=== PATIENT | female | born 1935 | race Caucasian/White ===

== ENCOUNTER 2016-07-13 15:18 | Inpatient (IN) | payer MEDICARE, OTHER ==
[~2016-07-13] VITALS: Ht 160 cm; Wt 45.1 kg
[~2016-07-13 15:18] MED LIST: ASPI-621 PO; ATOR40TA78 PO; LISI-167 PO
[2016-07-13 16:06] LABS: HEMOGLOBIN 11.3 g/dL (11.7-16.4)
[2016-07-13 16:18] LABS: ASPARTATE AMINO TRANSFERASE 14 U/L (15-37); BLOOD UREA NITROGEN 38 mg/dL (7-18)
[2016-07-13] MEDS ORDERED: TEMA15CA PO (16:53)
[2016-07-13] MEDS ORDERED: LORA-446 PO (16:53)
[2016-07-13] MEDS ORDERED: CETI-237 PO (16:53)
[2016-07-13] MEDS ORDERED: CEFTRIAXONE PMX 1GM/50ML 50 ML ONE (19:30)
[2016-07-13] MEDS ORDERED: CEFTRIAXONE PMX 1GM/50ML 50 ML IV ONE (19:30)
[2016-07-13] MEDS ORDERED: TRAZODONE 50MG TABLET PO PRN (21:00)
[2016-07-13] MEDS ORDERED: ONDANSETRON ODT 4 MG PO PRN (21:00)
[2016-07-13] MEDS ORDERED: POLYETHYLENE GLYCOL 17 GM PACKET PO PRN (21:00)
[2016-07-13] MEDS ORDERED: DOCUSATE 100 MG CAPSULE PO PRN (21:00)
[2016-07-13] MEDS ORDERED: MORPHINE SULFATE 4 MG/ML, 1ML IVPush PRN (21:00)
[2016-07-13] MEDS ORDERED: BISACODYL 10 MG SUPP PR PRN (21:00)
[2016-07-13 21:16] VITALS: BP 188/72
[2016-07-13] MEDS: SODIUM CHLORIDE 0.9% 1,000 ML IV SCH (21:53)
[2016-07-13] MEDS: ATORVASTATIN 40 MG TABLET PO SCH (21:54)
[2016-07-13] MEDS: HEPARIN 5,000 UNITS/ML, 1ML SQ SCH (21:54)
[2016-07-13] MEDS: NICOTINE 7 MG/24 HR PATCH.TD24 TD SCH (21:55)
[2016-07-13] MEDS: CEFTRIAXONE PMX 2GM/50ML 50 ML IV SCH (21:55)
[2016-07-13] MEDS: ACETAMINOPHEN 325 MG TABLET PO PRN (22:04)
[2016-07-13 22:38] VITALS: BP 164/64
[2016-07-14] VITALS (8 sets, daily range): BP systolic 155–221; BP diastolic 62–78
[2016-07-14 05:22] LABS: HEMOGLOBIN 9.8 g/dL (11.7-16.4)
[2016-07-14 05:29] LABS: BLOOD UREA NITROGEN 31 mg/dL (7-18)
[2016-07-14] MEDS: ASPIRIN 81 MG TABLET EC PO SCH (05:38)
[2016-07-14] MEDS: HEPARIN 5,000 UNITS/ML, 1ML SQ SCH ×3 (05:38→21:11)
[2016-07-14 05:41] LABS: ASPARTATE AMINO TRANSFERASE 12 U/L (15-37)
[2016-07-14] MEDS: SODIUM CHLORIDE 0.9% 1,000 ML IV SCH ×2 (08:34→14:43)
[2016-07-14] MEDS ORDERED: LISINOPRIL 10 MG TABLET PO SCH (09:00)
[2016-07-14] MEDS: LABETALOL 5MG/ML, 20ML IV PRN ×2 (14:47→19:54)
[2016-07-14] MEDS ORDERED: HYDROcodone/APAP 5/325 TABLET PO PRN (16:00)
[2016-07-14] MEDS: CEFTRIAXONE PMX 2GM/50ML 50 ML IV SCH (21:11)
[2016-07-14] MEDS: NICOTINE 7 MG/24 HR PATCH.TD24 TD SCH (21:11)
[2016-07-14] MEDS: ACETAMINOPHEN 325 MG TABLET PO PRN (21:12)
[2016-07-14] MEDS: ATORVASTATIN 40 MG TABLET PO SCH (21:12)
[2016-07-14] MEDS: hydrALAzine 20 MG/ML, 1ML IV PRN (23:20)
[2016-07-15] VITALS (8 sets, daily range): BP systolic 136–200; BP diastolic 54–74
[2016-07-15] MEDS: HEPARIN 5,000 UNITS/ML, 1ML SQ SCH ×3 (05:15→22:23)
[2016-07-15] MEDS: ASPIRIN 81 MG TABLET EC PO SCH (05:15)
[2016-07-15 05:46] LABS: HEMOGLOBIN 9.7 g/dL (11.7-16.4)
[2016-07-15 05:52] LABS: ASPARTATE AMINO TRANSFERASE 15 U/L (15-37); BLOOD UREA NITROGEN 17 mg/dL (7-18)
[2016-07-15] MEDS: LISINOPRIL 20 MG TABLET PO SCH ×2 (09:04→22:23)
[2016-07-15] MEDS: ACETAMINOPHEN 325 MG TABLET PO PRN ×2 (09:07→17:49)
[2016-07-15] MEDS: hydrALAzine 20 MG/ML, 1ML IV PRN (15:58)
[2016-07-15] MEDS: CEFTRIAXONE PMX 2GM/50ML 50 ML IV SCH (22:23)
[2016-07-15] MEDS: ATORVASTATIN 40 MG TABLET PO SCH (22:23)
[2016-07-15] MEDS: NICOTINE 7 MG/24 HR PATCH.TD24 TD SCH (22:24)
[2016-07-15] MEDS: TRAZODONE 50MG TABLET PO PRN (22:25)
[2016-07-16] MEDS: hydrALAzine 20 MG/ML, 1ML IV PRN (00:09)
[2016-07-16 01:23] VITALS: BP 104/53
[2016-07-16] MEDS: HEPARIN 5,000 UNITS/ML, 1ML SQ SCH ×2 (05:21→12:55)
[2016-07-16] MEDS: ASPIRIN 81 MG TABLET EC PO SCH (05:21)
[2016-07-16 06:55] VITALS: BP 135/73
[2016-07-16] MEDS: NICOTINE 7 MG/24 HR PATCH.TD24 TD SCH ×2 (09:00→20:37)
[2016-07-16] MEDS: LISINOPRIL 20 MG TABLET PO SCH ×2 (09:22→20:38)
[2016-07-16] MEDS: ACETAMINOPHEN 325 MG TABLET PO PRN (09:22)
[2016-07-16] MEDS ORDERED: DILTIAZEM 5 MG/ML, 5ML IVPush PRN (13:00)
[2016-07-16 13:55] VITALS: BP 174/84
[2016-07-16 20:00] VITALS: BP 197/53
[2016-07-16] MEDS: ATORVASTATIN 40 MG TABLET PO SCH (20:37)
[2016-07-16] MEDS: TRAZODONE 50MG TABLET PO PRN (20:37)
[2016-07-16] MEDS: LABETALOL 5MG/ML, 20ML IV PRN (20:38)
[2016-07-16] MEDS: CEFTRIAXONE PMX 2GM/50ML 50 ML IV SCH (20:38)
[2016-07-16] MEDS: APIXABAN 2.5 MG TABLET PO SCH (21:00)
[2016-07-16 21:45] VITALS: BP 115/57
[2016-07-17 01:17] VITALS: BP 175/69
[2016-07-17] MEDS: ASPIRIN 81 MG TABLET EC PO SCH (05:21)
[2016-07-17 07:06] VITALS: BP 185/77
[2016-07-17] MEDS: NICOTINE 7 MG/24 HR PATCH.TD24 TD SCH (08:06)
[2016-07-17] MEDS: APIXABAN 2.5 MG TABLET PO SCH ×2 (08:06→20:09)
[2016-07-17] MEDS: LISINOPRIL 20 MG TABLET PO SCH ×2 (08:06→20:09)
[2016-07-17 12:52] VITALS: BP 191/66
[2016-07-17] MEDS: LABETALOL 5MG/ML, 20ML IV PRN (14:25)
[2016-07-17 18:26] VITALS: BP 177/67
[2016-07-17] MEDS: ATORVASTATIN 40 MG TABLET PO SCH (20:07)
[2016-07-17] MEDS: CEFTRIAXONE PMX 2GM/50ML 50 ML IV SCH (20:09)
[2016-07-17] MEDS: ACETAMINOPHEN 325 MG TABLET PO PRN (20:09)
[2016-07-17] MEDS: TRAZODONE 50MG TABLET PO PRN (20:09)
[2016-07-18 01:50] VITALS: BP 190/77
[2016-07-18 02:07] VITALS: BP 196/98
[2016-07-18] MEDS: LABETALOL 5MG/ML, 20ML IV PRN (02:11)
[2016-07-18 07:20] VITALS: BP 183/76
[2016-07-18] MEDS: NICOTINE 7 MG/24 HR PATCH.TD24 TD SCH (09:34)
[2016-07-18] MEDS: APIXABAN 2.5 MG TABLET PO SCH ×2 (09:35→20:06)
[2016-07-18] MEDS: LISINOPRIL 20 MG TABLET PO SCH ×2 (09:35→20:06)
[2016-07-18] MEDS: ASPIRIN 81 MG TABLET EC PO SCH (09:35)
[2016-07-18] MEDS: METOPROLOL TARTRATE 25 MG TABLET PO SCH ×2 (09:35→17:42)
[2016-07-18] MEDS: CETIRIZINE 10 MG TABLET PO SCH (09:36)
[2016-07-18 13:23] VITALS: BP 171/80
[2016-07-18] MEDS: LORazepam 0.5MG TABLET PO PRN ×2 (17:42→22:06)
[2016-07-18 20:01] VITALS: BP 172/62
[2016-07-18] MEDS: ATORVASTATIN 40 MG TABLET PO SCH (20:06)
[2016-07-18] MEDS: TRAZODONE 50MG TABLET PO PRN (20:06)
[2016-07-18] MEDS: CEFTRIAXONE PMX 2GM/50ML 50 ML IV SCH (20:06)
[2016-07-18] MEDS: ACETAMINOPHEN 325 MG TABLET PO PRN (22:06)
[2016-07-19 01:58] VITALS: BP 126/58
[2016-07-19 06:15] VITALS: BP 187/71
[2016-07-19] MEDS: ASPIRIN 81 MG TABLET EC PO SCH (06:18)
[2016-07-19] MEDS: METOPROLOL TARTRATE 25 MG TABLET PO SCH ×2 (06:18→19:14)
[2016-07-19 06:52] VITALS: BP 186/64
[2016-07-19] MEDS ORDERED: AMLODIPINE 2.5 MG TABLET PO SCH (10:00)
[2016-07-19] MEDS: CETIRIZINE 10 MG TABLET PO SCH (10:03)
[2016-07-19] MEDS: LORazepam 0.5MG TABLET PO PRN ×2 (10:04→20:10)
[2016-07-19] MEDS: NICOTINE 7 MG/24 HR PATCH.TD24 TD SCH (10:04)
[2016-07-19] MEDS: APIXABAN 2.5 MG TABLET PO SCH ×2 (10:04→20:10)
[2016-07-19] MEDS: LISINOPRIL 20 MG TABLET PO SCH ×2 (10:04→20:10)
[2016-07-19 12:25] VITALS: BP 175/55
[2016-07-19] MEDS: AMOXICILLIN/CLAV 875-125MG TABLET PO SCH ×2 (13:58→20:10)
[2016-07-19] MEDS: ATORVASTATIN 40 MG TABLET PO SCH (20:10)
[2016-07-19] MEDS: AMLODIPINE 5 MG TABLET PO SCH (20:11)
[2016-07-19] MEDS: TRAZODONE 50MG TABLET PO PRN (21:01)
[2016-07-19 21:11] VITALS: BP 168/81
[2016-07-20 02:00] VITALS: BP 156/61
[2016-07-20 06:24] VITALS: BP 150/63
[2016-07-20] MEDS: ASPIRIN 81 MG TABLET EC PO SCH (06:24)
[2016-07-20] MEDS: METOPROLOL TARTRATE 25 MG TABLET PO SCH (06:24)
[2016-07-20 07:27] VITALS: BP 160/60
[2016-07-20] MEDS: AMLODIPINE 5 MG TABLET PO SCH (08:31)
[2016-07-20] MEDS: AMOXICILLIN/CLAV 875-125MG TABLET PO SCH (08:31)
[2016-07-20] MEDS: APIXABAN 2.5 MG TABLET PO SCH (08:32)
[2016-07-20] MEDS: LISINOPRIL 20 MG TABLET PO SCH (08:32)
[2016-07-20] MEDS: CETIRIZINE 10 MG TABLET PO SCH (08:33)
[2016-07-20] MEDS: NICOTINE 7 MG/24 HR PATCH.TD24 TD SCH (08:34)
[2016-07-20 11:07] LABS: HEMOGLOBIN 10.6 g/dL (11.7-16.4)
[2016-07-20 12:50] VITALS: BP 150/54
[2016-07-20] MEDS ORDERED: METO25TA35 PO (14:55)
[2016-07-20] MEDS ORDERED: AMOX1TAB12 PO (14:55)
[2016-07-20] MEDS ORDERED: AMLO5TAB2 PO (14:55)
[2016-07-20] MEDS ORDERED: LISI-170 PO (14:55)
[2016-07-20] MEDS ORDERED: APIX2.5T PO (14:55)
[2016-07-20] MEDS ORDERED: LORA-445 PO (14:55)
== END 2016-07-20 15:50 | DRG 871 ==
LOC: MERGE 15:18 → EDBD 15:18 → ED 16:26 → EDIP 19:23 → 3NE 21:06 → 4WST 07-16 13:34
PROVIDERS: ADMIT Internal Medicine; ATTEND Internal Medicine
PROC: 0T9B70Z Drainage of Bladder with Drainage Device, Via Natural or Artificial Opening (ICD-10-PCS; principal; 2016-07-13)
DX: A41.9 Sepsis, unspecified organism (principal); E43 Unspecified severe protein-calorie malnutrition; N39.0 Urinary tract infection, site not specified; S32.599A Other specified fracture of unspecified pubis, initial encounter for closed fracture; Z68.1 Body mass index [BMI] 19.9 or less, adult; J93.9 Pneumothorax, unspecified; D68.59 Other primary thrombophilia; R64 Cachexia; I10 Essential (primary) hypertension; D64.9 Anemia, unspecified; Z66 Do not resuscitate; I48.0 Paroxysmal atrial fibrillation; I16.0 Hypertensive urgency; B95.2 Enterococcus as the cause of diseases classified elsewhere; M19.90 Unspecified osteoarthritis, unspecified site; W19.XXXA Unspecified fall, initial encounter; Z86.73 Personal history of transient ischemic attack (TIA), and cerebral infarction without residual deficits; Z72.0 Tobacco use; M51.36 Other intervertebral disc degeneration, lumbar region
CPT/HCPCS: 36415; 71010; 72110; 72170; 72192; 72220; 76536; 80053; 81001; 83605; 83735; 84436; 84439; 84443; 84481; 85025; 85610; 87040; 87077; 87086; 87186; 93005; 96365; J0696; J1644; J0360; J7030

== ENCOUNTER 2016-09-14 04:52 | Emergency (ER) | payer OTHER ==
[~2016-09-14] VITALS: Ht 160 cm; Wt 42.0 kg
[~2016-09-14 04:52] MED LIST changes: +AMLO5TAB2 PO; +AMOX1TAB12 PO; +APIX2.5T PO; +CETI-237 PO; +LISI-170 PO; +LORA-445 PO; +LORA-446 PO; +METO25TA35 PO; +TEMA15CA PO
[2016-09-14] MEDS ORDERED: DIVA125T2 PO (05:57)
[2016-09-14] MEDS ORDERED: TRAZ100T15 PO (05:57)
[2016-09-14] MEDS ORDERED: HYDR25TA11 PO (05:57)
[2016-09-14] MEDS ORDERED: MELA3TAB PO (05:57)
[2016-09-14] MEDS ORDERED: SODIUM CHLORIDE FLUSH 10ML SYR IVF ONE (06:00)
[2016-09-14 06:54] LABS: ASPARTATE AMINO TRANSFERASE 14 U/L (15-37); BLOOD UREA NITROGEN 19 mg/dL (7-18)
[2016-09-14 06:59] LABS: IS PT STATUS REG ER OR PRE ER? YES
[2016-09-14 08:54] VITALS: BP 165/78
== END 2016-09-14 09:55 | disposition home or self-care (01) ==
LOC: ED 06:23
DX: R05 Cough (principal); I10 Essential (primary) hypertension
CPT/HCPCS: 36415; 70450; 71010; 80053; 83880; 84484; 85025; 85610; 85730; 93005; 99285